=== PATIENT | female | born 2000 | race Two or more races ===

== ENCOUNTER 2020-01-11 16:48 | Emergency (ER) | payer OTHER ==
[~2020-01-11] VITALS: Ht 167.6 cm; Wt 62.0 kg
[2020-01-11 17:19] LABS: HEMATOCRIT 37.3 % (37.0-47.0); HEMOGLOBIN 11.6 g/dl (12.0-16.0); IMMATURE GRANULOCYTES 0.2 % (0.0-5.0); MEAN CELL VOLUME 78.5 fL CALC (80.0-100.0); MEAN CORPUSCULAR HGB 24.4 pG CALC (26.0-32.0); MEAN CORPUSCULAR HGB CONC 31.1 g/dL CAL (32.0-36.0); NEUT# 2.75 thou/uL (2.00-7.15); RED BLOOD COUNT 4.75 mill/uL (4.20-5.60); RED CELL DISTRI WIDTH 14.9 % (11.5-15.5)
[2020-01-11 17:36] LABS: ANION GAP 15 (6-22 (CALC)); BUN 13 mg/dL (8-21); BUN/CREATININE RATIO 24 (12-20 (CALC)); CARBON DIOXIDE 23 mmol/l (22-30); CHLORIDE 102 mmol/l (95-108); CREATININE 0.5 mg/dL (0.5-1.0); GFR > 60 ML/MIN (>=60 (CALC)); GFR FOR AFR.AMER. > 60 ML/MIN (>=60 (CALC)); POTASSIUM 4.3 mmol/l (3.5-5.1); SODIUM 135 mmol/l (137-146)
[2020-01-11 17:53] LABS: BETA-HCG, QUANT(RESULT NUMBER) 82 mIU/mL
[2020-01-11 18:24] LABS: URINE BILIRUBIN - DIPSTICK NEGATIVE (NEGATIVE); URINE BLOOD DIPSTICK NEGATIVE (NEGATIVE); URINE COLOR YELLOW; URINE GLUCOSE - DIPSTICK NEGATIVE (NEGATIVE); URINE KETONE NEGATIVE (NEGATIVE); URINE LEUK ESTERASE NEGATIVE (NEGATIVE); URINE NITRITE - DIPSTICK NEGATIVE (Negative); URINE PROTEIN - DIPSTICK NEGATIVE (NEG-TRACE); URINE UROBILINOGEN - DIPSTICK 0.2 E.U./dL (0.2)
[2020-01-11] MEDS ORDERED: PRENATAL + COMP1 PAK PO (18:50)
[2020-01-11 19:00] VITALS: BP 129/67
== END 2020-01-11 19:00 | disposition home or self-care (01) ==
LOC: ED 16:48
PROVIDERS: Student in an Organized Health Care Education/Training Program
DX: O26.891 Other specified pregnancy related conditions, first trimester (principal); R53.1 Weakness; Z3A.01 Less than 8 weeks gestation of pregnancy

== ENCOUNTER 2020-01-22 19:05 | Emergency (ER) | payer OTHER ==
[~2020-01-22] VITALS: Ht 160 cm; Wt 55.9 kg
[~2020-01-22 19:05] MED LIST: PRENATAL + COMP1 PAK PO
[2020-01-22] MEDS ORDERED: TRAZODONE50 MG PO (19:33)
[2020-01-22] MEDS ORDERED: MIGRAINE MED (19:33)
[2020-01-22] MEDS ORDERED: FERROUS SULF325 M3 PO (19:33)
[2020-01-22] MEDS ORDERED: AMOXICILLIN500 MG PO (19:38)
[2020-01-22 19:48] VITALS: BP 125/67
== END 2020-01-22 19:48 | disposition home or self-care (01) ==
LOC: ED 19:05
DX: O99.891 Other specified diseases and conditions complicating pregnancy (principal); I88.9 Nonspecific lymphadenitis, unspecified; Z3A.00 Weeks of gestation of pregnancy not specified

== ENCOUNTER 2020-02-05 21:01 | Emergency (ER) | payer OTHER ==
[~2020-02-05] VITALS: Ht 160 cm; Wt 54.6 kg
[~2020-02-05 21:01] MED LIST changes: +AMOXICILLIN500 MG PO; +FERROUS SULF325 M3 PO; +MIGRAINE MED; +TRAZODONE50 MG PO
[2020-02-05 21:52] LABS: HEMATOCRIT 39.3 % (37.0-47.0); HEMOGLOBIN 12.8 g/dl (12.0-16.0); IMMATURE GRANULOCYTES 0.2 % (0.0-5.0); MEAN CELL VOLUME 75.7 fL CALC (80.0-100.0); MEAN CORPUSCULAR HGB 24.7 pG CALC (26.0-32.0); MEAN CORPUSCULAR HGB CONC 32.6 g/dL CAL (32.0-36.0); NEUT# 3.72 thou/uL (2.00-7.15); RED BLOOD COUNT 5.19 mill/uL (4.20-5.60); RED CELL DISTRI WIDTH 14.4 % (11.5-15.5)
[2020-02-05 22:07] LABS: ALBUMIN 4.9 g/dL (3.2-5.0); ALKALINE PHOSPHATASE 56 u/l (38-126); ANION GAP 16 (6-22 (CALC)); BILIRUBIN, TOTAL 0.7 mg/dL (0.0-1.4); BUN 7 mg/dL (8-21); BUN/CREATININE RATIO 12 (12-20 (CALC)); CARBON DIOXIDE 24 mmol/l (22-30); CHLORIDE 98 mmol/l (95-108); CREATININE 0.6 mg/dL (0.5-1.0); GFR > 60 ML/MIN (>=60 (CALC)); GFR FOR AFR.AMER. > 60 ML/MIN (>=60 (CALC)); POTASSIUM 4.1 mmol/l (3.5-5.1); SGOT/AST 31 u/l (14-36); SODIUM 134 mmol/l (137-146); TOTAL PROTEIN 8.8 g/dL (6.3-8.2)
[2020-02-05 22:08] VITALS: BP 125/63
[2020-02-05] MEDS ORDERED: PHENERGAN25 MG RE (22:35)
== END 2020-02-05 22:43 | disposition home or self-care (01) ==
LOC: ED 21:01
PROVIDERS: Family Medicine
DX: O21.0 Mild hyperemesis gravidarum (principal); Z3A.08 8 weeks gestation of pregnancy